=== PATIENT | female | born 1965 | race Caucasian/White ===

== ENCOUNTER 2017-07-11 04:23 | Emergency (ER) | payer SELFPAY ==
[2017-07-11] MEDS ORDERED: Sodium Chloride 0.9% 10 ML Syringe FLUSH PRN (04:31)
[2017-07-11] MEDS ORDERED: methylPREDNISolone Sodium Succinate 125 MG/2 ML SDV IVPUSH STA (04:31)
[2017-07-11] MEDS ORDERED: Sodium Chloride 0.9% 2.5 ML Syringe FLUSH PRN (04:31)
[2017-07-11] MEDS ORDERED: Albuterol/Ipratropium 3.0-0.5 MG/3 ML Neb Soln NEB ONE ×2 (04:31→05:17)
[2017-07-11] MEDS ORDERED: methylPREDNISolone Sodium Succinate 125 MG/2 ML SDV ONE (04:38)
[2017-07-11] MEDS ORDERED: methylPREDNISolone Sodium Succinate 125 MG/2 ML SDV IVPUSH ONE (04:42)
[2017-07-11 05:02] LABS: CHLORIDE,CL 102 mmol/L (98-107); SODIUM,NA 137 mmol/L (136-145)
--- NOTE | 2017-07-11 06:21 | EDM.PDOC ---
ED HPI GENERAL MEDICAL PROBLEM - General Chief Complaint: Respiratory Problem Stated Complaint: AMBULANCE Time Seen by Provider: 07/11/17 06:16 - History of Present Illness INITIAL COMMENTS - FREE TEXT/NARRATIVE: HISTORY AND PHYSICAL: History of present illness: Patient 51-year-old female presents status post fall she hit her head and injured her left wrist this occurred one day prior she denies loss consciousness denies neck pain denies any other trauma or concern. Review of systems: As per history of present illness and below otherwise all systems reviewed and negative. Past medical history: As per history of present illness and as reviewed below otherwise noncontributory. Surgical history: As per history of present illness and as reviewed below otherwise noncontributory. Social history: No reported history of drug or alcohol abuse. Family history: As per history of present illness and as reviewed below otherwise noncontributory. Physical exam: HEENT: Atraumatic, normocephalic, pupils reactive, negative for conjunctival pallor or scleral icterus, mucous membranes moist, throat clear, neck supple, nontender, trachea midline. Lungs: Clear to auscultation, breath sounds equal bilaterally, chest nontender. Heart: S1S2, regular, negative for clicks, rubs, or JVD. Abdomen: Soft, nondistended, nontender. Negative for masses or hepatosplenomegaly. Negative for costovertebral tenderness. Pelvis: Stable nontender. Genitourinary: Deferred. Rectal: Deferred. Extremities: Patient is some mild tenderness and some small bruising over the dorsal aspect of her left wrist is no snuffbox tenderness no point tenderness no crepitation CMS neurovascular is unremarkable Neuro: Awake, alert, oriented. Cranial nerves II through XII unremarkable. Cerebellum unremarkable. Motor and sensory unremarkable throughout. Exam nonfocal. Diagnostics: CT brain x-ray left wrist Therapeutics: Velcro splint left wrist Impression: #1 head injury #2 left wrist injury Definitive disposition and diagnosis as appropriate pending reevaluation and review of above. Bilateral Ribs Pain Score (Numeric/FACES): 8 - Related Data Allergies Allergy/AdvReac Type Severity Reaction Status Date / Time No Known Allergies Allergy Verified 07/11/17 04:41 Home Meds: Home Meds Aspirin [Ecotrin] 81 mg PO DAILY 07/11/17 [History] Gabapentin [Neurontin] 800 mg PO DAILY 07/11/17 [History] Insulin Aspart [NovoLOG] 0 unit WITHMEALSANDBED 07/11/17 [History] Insulin Glargine,Hum.Rec.Anlog [Touseema Solostar] 50 unit SQ QAM 07/11/17 [ History] Lisinopril/Hydrochlorothiazide [Lisinopril-Hctz 10-12.5 mg Tab] 1 each PO DAILY 07/11/17 [History] Promethazine [Phenergan] 25 mg PO Q4H PRN 07/11/17 [History] Ziprasidone HCl [Geodon] 80 mg PO BID 07/11/17 [History] atorvaSTATin [Lipitor] 20 mg PO BEDTIME 07/11/17 [History] diphenhydrAMINE [Benadryl] 25 mg PO ASDIRECTED PRN 07/11/17 [History] hydrOXYzine HCl [Atarax] 50 mg PO TID 07/11/17 [History] lamoTRIgine 200 mg PO DAILY 07/11/17 [History] Past Medical History Gastrointestinal History: Reports: Pancreatitis 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: Endocrine/Metabolic History: Reports: Diabetes, Type I Oncologic (Cancer) History: Reports: Cervix - Past Surgical History GI Surgical History: Reports: Other (See Below) Other GI Surgeries/Procedures: pacreatic stent placement/removal Female Surgical History: Reports: Section, Hysterectomy Musculoskeletal Surgical History: Reports: Arthroscopic Knee Social & Family History - Tobacco Use Smoking Status *Q: Current Every Day Smoker Years of Tobacco use: 30 Packs/Tins Daily: 1 - Caffeine Use Caffeine Use: Reports: Energy Drinks - Recreational Drug Use Recreational Drug Use: Yes Drug Use in Last 12 Months: Yes Recreational Drug Type: Reports: Cocaine Recreational Drug Use Frequency: Socially ED ROS GENERAL - Review of Systems Review Of Systems: ROS reveals no pertinent complaints other than HPI. ED EXAM, GENERAL - Physical Exam Exam: See Below (See dictation) Course - Vital Signs Last Recorded V/S: Last Vital Signs Temp 36.3 C 07/11/17 04:36 Pulse 93 07/11/17 05:53 Resp 20 07/11/17 05:53 BP 142/81 H 07/11/17 05:53 Pulse Ox 96 07/11/17 05:53 - Orders/Labs/Meds Orders: Active Orders 24 hr Category Date Time Status EKG Documentation Completion [RC] STAT Care 07/11/17 04:31 Active RT Aerosol Therapy [RC] ASDIRECTED Care 07/11/17 04:32 Active RT Aerosol Therapy [RC] ASDIRECTED Care 07/11/17 05:18 Active Chest 1V Frontal [CR] Stat Exams 07/11/17 04:31 Taken Sodium Chloride 0.9% [Saline Flush] Med 07/11/17 04:31 Active 10 ml FLUSH ASDIRECTED PRN Sodium Chloride 0.9% [Saline Flush] Med 07/11/17 04:31 Active 2.5 ml FLUSH ASDIRECTED PRN Saline Lock Insert [OM.PC] Stat Oth 07/11/17 04:31 Ordered Medication Orders Sodium Chloride (Saline Flush) 10 ml FLUSH ASDIRECTED PRN PRN Reason: Keep Vein Open Sodium Chloride (Saline Flush) 2.5 ml FLUSH ASDIRECTED PRN PRN Reason: Keep Vein Open Labs: Laboratory Tests 07/11/17 07/11/17 07/11/17 Range/Units 04:35 04:35 04:35 WBC 7.21 (4.0-11.0) K/uL RBC 4.99 (4.30-5.90) M/uL Hgb 15.6 (12.0-16.0) g/dL Hct 44.6 (36.0-46.0) % MCV 89.4 (80.0-98.0) fL MCH 31.3 (27.0-32.0) pg MCHC 35.0 (31.0-37.0) g/dL RDW Std Deviation 45.5 (28.0-62.0) fl RDW Coeff of Anuj 14 (11.0-15.0) % Plt Count 218 (150-400) K/uL MPV 9.60 (7.40-12.00) fL Neut % (Auto) 55.0 (48.0-80.0) % Lymph % (Auto) 33.3 (16.0-40.0) % [place] % (Auto) 8.6 (0.0-15.0) % Eos % (Auto) 2.4 (0.0-7.0) % Baso % (Auto) 0.7 (0.0-1.5) % Neut # (Auto) 4.0 (1.4-5.7) K/uL Lymph # (Auto) 2.4 (0.6-2.4) K/uL [place] # (Auto) 0.6 (0.0-0.8) K/uL Eos # (Auto) 0.2 (0.0-0.7) K/uL Baso # (Auto) 0.1 (0.0-0.1) K/uL Nucleated RBC % 0.0 /100WBC Nucleated RBCs # 0 K/uL INR 0.96 ABG pH (7.35-7.45) ABG pCO2 (35-45) mmHG ABG pO2 (75-100) mmHG ABG HCO3 (22-26) mEq/L ABG Total CO2 ABG Base Excess (-2.0-2.0) Sodium 137 (136-145) mmol/L Potassium 4.1 (3.5-5.1) mmol/L Chloride 102 (98-107) mmol/L Carbon Dioxide 29.9 (21.0-32.0) mmol/L BUN 20 H (7.0-18.0) mg/dL Creatinine 1.4 H (0.6-1.0) mg/dL Est Cr Clr Drug Dosing 43.50 mL/min Estimated GFR (MDRD) 39.3 ml/min Glucose 332 H (74-106) mg/dL Calcium 9.1 (8.5-10.1) mg/dL Total Bilirubin 0.4 (0.2-1.0) mg/dL AST 26 (15-37) IU/L ALT 34 (14-63) IU/L Alkaline Phosphatase 129 H (46-116) U/L Troponin I < 0.050 (0.000-0.056) ng/mL B-Natriuretic Peptide (<100) PG/ML Total Protein 6.8 (6.4-8.2) g/dL Albumin 3.2 L (3.4-5.0) g/dL Globulin 3.6 H (2.0-3.5) g/dL Albumin/Globulin Ratio 0.9 L (1.3-2.8) 07/11/17 07/11/17 Range/Units 04:35 04:45 WBC (4.0-11.0) K/uL RBC (4.30-5.90) M/uL Hgb (12.0-16.0) g/dL Hct (36.0-46.0) % MCV (80.0-98.0) fL MCH (27.0-32.0) pg MCHC (31.0-37.0) g/dL RDW Std Deviation (28.0-62.0) fl RDW Coeff of Anuj (11.0-15.0) % Plt Count (150-400) K/uL MPV (7.40-12.00) fL Neut % (Auto) (48.0-80.0) % Lymph % (Auto) (16.0-40.0) % [place] % (Auto) (0.0-15.0) % Eos % (Auto) (0.0-7.0) % Baso % (Auto) (0.0-1.5) % Neut # (Auto) (1.4-5.7) K/uL Lymph # (Auto) (0.6-2.4) K/uL [place] # (Auto) (0.0-0.8) K/uL Eos # (Auto) (0.0-0.7) K/uL Baso # (Auto) (0.0-0.1) K/uL Nucleated RBC % /100WBC Nucleated RBCs # K/uL INR ABG pH 7.479 H (7.35-7.45) ABG pCO2 40 (35-45) mmHG ABG pO2 141 H (75-100) mmHG ABG HCO3 30 H (22-26) mEq/L ABG Total CO2 25.6 ABG Base Excess 5.7 H (-2.0-2.0) Sodium (136-145) mmol/L Potassium (3.5-5.1) mmol/L Chloride (98-107) mmol/L Carbon Dioxide (21.0-32.0) mmol/L BUN (7.0-18.0) mg/dL Creatinine (0.6-1.0) mg/dL Est Cr Clr Drug Dosing mL/min Estimated GFR (MDRD) ml/min Glucose (74-106) mg/dL Calcium (8.5-10.1) mg/dL Total Bilirubin (0.2-1.0) mg/dL AST (15-37) IU/L ALT (14-63) IU/L Alkaline Phosphatase (46-116) U/L Troponin I (0.000-0.056) ng/mL B-Natriuretic Peptide < 15 (<100) PG/ML Total Protein (6.4-8.2) g/dL Albumin (3.4-5.0) g/dL Globulin (2.0-3.5) g/dL Albumin/Globulin Ratio (1.3-2.8) Meds: Medications Generic Name Dose Route Start Last Admin Trade Name Freq PRN Reason Stop Dose Admin Sodium Chloride 10 ml 07/11/17 04:31 Saline Flush FLUSH ASDIRECTED PRN Keep Vein Open Sodium Chloride 2.5 ml 07/11/17 04:31 Saline Flush FLUSH ASDIRECTED PRN Keep Vein Open Discontinued Medications Generic Name Dose Route Start Last Admin Trade Name Freq PRN Reason Stop Dose Admin Albuterol/Ipratropium 3 ml 07/11/17 04:31 07/11/17 04:44 Duoneb 3.0-0.5 Mg/3 Ml NEB 07/11/17 04:32 3 ml ONETIME ONE Administration Albuterol/Ipratropium 3 ml 07/11/17 05:17 07/11/17 05:31 Duoneb 3.0-0.5 Mg/3 Ml NEB 07/11/17 05:18 3 ml ONETIME ONE Administration Methylprednisolone Sodium Succinate 125 mg 07/11/17 04:31 07/11/17 04:46 Solu-Medrol IVPUSH 07/11/17 04:32 Not Given ONETIME STA Methylprednisolone Sodium Succinate Confirm 07/11/17 04:38 07/11/17 04:44 Solu-Medrol Administered 07/11/17 04:39 Not Given Dose 125 mg .ROUTE .STK-MED ONE Methylprednisolone Sodium Succinate 125 mg 07/11/17 04:42 07/11/17 04:44 Solu-Medrol IVPUSH 07/11/17 04:43 125 mg ONETIME ONE Administration Departure - Departure Time of Disposition: 06:20 Disposition: Home, Self-Care 01 Condition: Good Clinical Impression: Head injury, Wrist injury - Discharge Information Referrals: PCP,None [Primary Care Provider] - Additional Instructions: The following information is given to patients seen in the emergency department who are being discharged to home. This information is to outline your options for follow-up care. We provide all patients seen in our emergency department with a follow-up referral. The need for follow-up, as well as the timing and circumstances, are variable depending upon the specifics of your emergency department visit. If you don't have a primary care physician on staff, we will provide you with a referral. We always advise you to contact your personal physician following an emergency department visit to inform them of the circumstance of the visit and for follow-up with them and/or the need for any referrals to a consulting specialist. The emergency department will also refer you to a specialist when appropriate. This referral assures that you have the opportunity for followup care with a specialist. All of these measure are taken in an effort to provide you with optimal care, which includes your followup. Under all circumstances we always encourage you to contact your private physician who remains a resource for coordinating your care. When calling for followup care, please make the office aware that this follow-up is from your recent emergency room visit. If for any reason you are refused follow-up, please contact the [facility] emergency department at and asked to speak to the emergency department charge nurse. [facility] Professional Building [address] [place] [address], [address] [place] [address] Velcro splint as directed follow-up primary medical doctor/orthopedic clinic above as needed as discussed return as needed as discussed - My Orders Last 24 Hours: My Active Orders 07/11/17 04:31 EKG Documentation Completion [RC] STAT Chest 1V Frontal [CR] Stat Sodium Chloride 0.9% [Saline Flush] 10 ml FLUSH ASDIRECTED PRN Sodium Chloride 0.9% [Saline Flush] 2.5 ml FLUSH ASDIRECTED PRN Saline Lock Insert [OM.PC] Stat 07/11/17 04:32 RT Aerosol Therapy [RC] ASDIRECTED 07/11/17 05:18 RT Aerosol Therapy [RC] ASDIRECTED - Assessment/Plan Last 24 Hours: My Active Orders 07/11/17 04:31 EKG Documentation Completion [RC] STAT Chest 1V Frontal [CR] Stat Sodium Chloride 0.9% [Saline Flush] 10 ml FLUSH ASDIRECTED PRN Sodium Chloride 0.9% [Saline Flush] 2.5 ml FLUSH ASDIRECTED PRN Saline Lock Insert [OM.PC] Stat 07/11/17 04:32 RT Aerosol Therapy [RC] ASDIRECTED 07/11/17 05:18 RT Aerosol Therapy [RC] ASDIRECTED
--- NOTE | 2017-07-11 06:46 | EDM.PDOC ---
ED HPI GENERAL MEDICAL PROBLEM - General Chief Complaint: Respiratory Problem Stated Complaint: AMBULANCE Time Seen by Provider: 07/11/17 06:16 - History of Present Illness INITIAL COMMENTS - FREE TEXT/NARRATIVE: HISTORY AND PHYSICAL: History of present illness: Patient 51-year-old female presents with concern of shortness of breath after smoking cocaine she does smoke tobacco for years she denies other drugs or concerns and states this was a one-time event upon arrival here she is wheezing short of breath she denies chest pain nausea vomiting fever chills or other complaints. Review of systems: As per history of present illness and below otherwise all systems reviewed and negative. Past medical history: As per history of present illness and as reviewed below otherwise noncontributory. Surgical history: As per history of present illness and as reviewed below otherwise noncontributory. Social history: No reported history of drug or alcohol abuse. Family history: As per history of present illness and as reviewed below otherwise noncontributory. Physical exam: HEENT: Atraumatic, normocephalic, pupils reactive, negative for conjunctival pallor or scleral icterus, mucous membranes moist, throat clear, neck supple, nontender, trachea midline. Lungs: Or wheezing breath sounds slightly diminished, breath sounds equal bilaterally, chest nontender. Heart: S1S2, regular, negative for clicks, rubs, or JVD. Abdomen: Soft, nondistended, nontender. Negative for masses or hepatosplenomegaly. Negative for costovertebral tenderness. Pelvis: Stable nontender. Genitourinary: Deferred. Rectal: Deferred. Extremities: Atraumatic, negative for cords or calf pain. Neurovascular unremarkable. Neuro: Awake, alert, oriented. Cranial nerves II through XII unremarkable. Cerebellum unremarkable. Motor and sensory unremarkable throughout. Exam nonfocal. Diagnostics: CBC CMP troponin PT/INR chest x-ray EKG Therapeutics: Albuterol ipratropium nebulizer Impression: #1 substance abuse #2 bronchospasm Definitive disposition and diagnosis as appropriate pending reevaluation and review of above. Bilateral Ribs Pain Score (Numeric/FACES): 8 - Related Data Allergies Allergy/AdvReac Type Severity Reaction Status Date / Time No Known Allergies Allergy Verified 07/11/17 04:41 Home Meds: Home Meds Aspirin [Ecotrin] 81 mg PO DAILY 07/11/17 [History] Gabapentin [Neurontin] 800 mg PO DAILY 07/11/17 [History] Insulin Aspart [NovoLOG] 0 unit WITHMEALSANDBED 07/11/17 [History] Insulin Glargine,Hum.Rec.Anlog [[place]je[place] Solostar] 50 unit SQ QAM 07/11/17 [ History] Lisinopril/Hydrochlorothiazide [Lisinopril-Hctz 10-12.5 mg Tab] 1 each PO DAILY 07/11/17 [History] Promethazine [Phenergan] 25 mg PO Q4H PRN 07/11/17 [History] Ziprasidone HCl [Geodon] 80 mg PO BID 07/11/17 [History] atorvaSTATin [Lipitor] 20 mg PO BEDTIME 07/11/17 [History] diphenhydrAMINE [Benadryl] 25 mg PO ASDIRECTED PRN 07/11/17 [History] hydrOXYzine HCl [Atarax] 50 mg PO TID 07/11/17 [History] lamoTRIgine 200 mg PO DAILY 07/11/17 [History] Past Medical History Gastrointestinal History: Reports: Pancreatitis 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: Endocrine/Metabolic History: Reports: Diabetes, Type I Oncologic (Cancer) History: Reports: Cervix - Past Surgical History GI Surgical History: Reports: Other (See Below) Other GI Surgeries/Procedures: pacreatic stent placement/removal Female Surgical History: Reports: Section, Hysterectomy Musculoskeletal Surgical History: Reports: Arthroscopic Knee Social & Family History - Tobacco Use Smoking Status *Q: Current Every Day Smoker Years of Tobacco use: 30 Packs/Tins Daily: 1 - Caffeine Use Caffeine Use: Reports: Energy Drinks - Recreational Drug Use Recreational Drug Use: Yes Drug Use in Last 12 Months: Yes Recreational Drug Type: Reports: Cocaine Recreational Drug Use Frequency: Socially ED ROS GENERAL - Review of Systems Review Of Systems: ROS reveals no pertinent complaints other than HPI. ED EXAM, GENERAL - Physical Exam Exam: See Below (See dictation) Course - Vital Signs Text/Narrative:: Patient's emergency department course and unremarkable she is sleeping comfortably I discussed with her admission for observation she requests discharge home she'll be discharged on albuterol metered-dose inhaler and Medrol Dosepak to follow-up with Dr. garcia as needed as discussed. Using drugs Last Recorded V/S: Last Vital Signs Temp 36.3 C 07/11/17 04:36 Pulse 93 07/11/17 05:53 Resp 20 07/11/17 05:53 BP 142/81 H 07/11/17 05:53 Pulse Ox 96 07/11/17 05:53 - Orders/Labs/Meds Orders: Active Orders 24 hr Category Date Time Status EKG Documentation Completion [RC] STAT Care 07/11/17 04:31 Active RT Aerosol Therapy [RC] ASDIRECTED Care 07/11/17 04:32 Active RT Aerosol Therapy [RC] ASDIRECTED Care 07/11/17 05:18 Active Chest 1V Frontal [CR] Stat Exams 07/11/17 04:31 Taken Sodium Chloride 0.9% [Saline Flush] Med 07/11/17 04:31 Active 10 ml FLUSH ASDIRECTED PRN Sodium Chloride 0.9% [Saline Flush] Med 07/11/17 04:31 Active 2.5 ml FLUSH ASDIRECTED PRN Saline Lock Insert [OM.PC] Stat Oth 07/11/17 04:31 Ordered Medication Orders Sodium Chloride (Saline Flush) 10 ml FLUSH ASDIRECTED PRN PRN Reason: Keep Vein Open Sodium Chloride (Saline Flush) 2.5 ml FLUSH ASDIRECTED PRN PRN Reason: Keep Vein Open Labs: Laboratory Tests 07/11/17 07/11/17 07/11/17 Range/Units 04:35 04:35 04:35 WBC 7.21 (4.0-11.0) K/uL RBC 4.99 (4.30-5.90) M/uL Hgb 15.6 (12.0-16.0) g/dL Hct 44.6 (36.0-46.0) % MCV 89.4 (80.0-98.0) fL MCH 31.3 (27.0-32.0) pg MCHC 35.0 (31.0-37.0) g/dL RDW Std Deviation 45.5 (28.0-62.0) fl RDW Coeff of Anuj 14 (11.0-15.0) % Plt Count 218 (150-400) K/uL MPV 9.60 (7.40-12.00) fL Neut % (Auto) 55.0 (48.0-80.0) % Lymph % (Auto) 33.3 (16.0-40.0) % [place] % (Auto) 8.6 (0.0-15.0) % Eos % (Auto) 2.4 (0.0-7.0) % Baso % (Auto) 0.7 (0.0-1.5) % Neut # (Auto) 4.0 (1.4-5.7) K/uL Lymph # (Auto) 2.4 (0.6-2.4) K/uL [place] # (Auto) 0.6 (0.0-0.8) K/uL Eos # (Auto) 0.2 (0.0-0.7) K/uL Baso # (Auto) 0.1 (0.0-0.1) K/uL Nucleated RBC % 0.0 /100WBC Nucleated RBCs # 0 K/uL INR 0.96 ABG pH (7.35-7.45) ABG pCO2 (35-45) mmHG ABG pO2 (75-100) mmHG ABG HCO3 (22-26) mEq/L ABG Total CO2 ABG Base Excess (-2.0-2.0) Sodium 137 (136-145) mmol/L Potassium 4.1 (3.5-5.1) mmol/L Chloride 102 (98-107) mmol/L Carbon Dioxide 29.9 (21.0-32.0) mmol/L BUN 20 H (7.0-18.0) mg/dL Creatinine 1.4 H (0.6-1.0) mg/dL Est Cr Clr Drug Dosing 43.50 mL/min Estimated GFR (MDRD) 39.3 ml/min Glucose 332 H (74-106) mg/dL Calcium 9.1 (8.5-10.1) mg/dL Total Bilirubin 0.4 (0.2-1.0) mg/dL AST 26 (15-37) IU/L ALT 34 (14-63) IU/L Alkaline Phosphatase 129 H (46-116) U/L Troponin I < 0.050 (0.000-0.056) ng/mL B-Natriuretic Peptide (<100) PG/ML Total Protein 6.8 (6.4-8.2) g/dL Albumin 3.2 L (3.4-5.0) g/dL Globulin 3.6 H (2.0-3.5) g/dL Albumin/Globulin Ratio 0.9 L (1.3-2.8) 07/11/17 07/11/17 Range/Units 04:35 04:45 WBC (4.0-11.0) K/uL RBC (4.30-5.90) M/uL Hgb (12.0-16.0) g/dL Hct (36.0-46.0) % MCV (80.0-98.0) fL MCH (27.0-32.0) pg MCHC (31.0-37.0) g/dL RDW Std Deviation (28.0-62.0) fl RDW Coeff of Anuj (11.0-15.0) % Plt Count (150-400) K/uL MPV (7.40-12.00) fL Neut % (Auto) (48.0-80.0) % Lymph % (Auto) (16.0-40.0) % [place] % (Auto) (0.0-15.0) % Eos % (Auto) (0.0-7.0) % Baso % (Auto) (0.0-1.5) % Neut # (Auto) (1.4-5.7) K/uL Lymph # (Auto) (0.6-2.4) K/uL [place] # (Auto) (0.0-0.8) K/uL Eos # (Auto) (0.0-0.7) K/uL Baso # (Auto) (0.0-0.1) K/uL Nucleated RBC % /100WBC Nucleated RBCs # K/uL INR ABG pH 7.479 H (7.35-7.45) ABG pCO2 40 (35-45) mmHG ABG pO2 141 H (75-100) mmHG ABG HCO3 30 H (22-26) mEq/L ABG Total CO2 25.6 ABG Base Excess 5.7 H (-2.0-2.0) Sodium (136-145) mmol/L Potassium (3.5-5.1) mmol/L Chloride (98-107) mmol/L Carbon Dioxide (21.0-32.0) mmol/L BUN (7.0-18.0) mg/dL Creatinine (0.6-1.0) mg/dL Est Cr Clr Drug Dosing mL/min Estimated GFR (MDRD) ml/min Glucose (74-106) mg/dL Calcium (8.5-10.1) mg/dL Total Bilirubin (0.2-1.0) mg/dL AST (15-37) IU/L ALT (14-63) IU/L Alkaline Phosphatase (46-116) U/L Troponin I (0.000-0.056) ng/mL B-Natriuretic Peptide < 15 (<100) PG/ML Total Protein (6.4-8.2) g/dL Albumin (3.4-5.0) g/dL Globulin (2.0-3.5) g/dL Albumin/Globulin Ratio (1.3-2.8) Meds: Medications Generic Name Dose Route Start Last Admin Trade Name Freq PRN Reason Stop Dose Admin Sodium Chloride 10 ml 07/11/17 04:31 Saline Flush FLUSH ASDIRECTED PRN Keep Vein Open Sodium Chloride 2.5 ml 07/11/17 04:31 Saline Flush FLUSH ASDIRECTED PRN Keep Vein Open Discontinued Medications Generic Name Dose Route Start Last Admin Trade Name Freq PRN Reason Stop Dose Admin Albuterol/Ipratropium 3 ml 07/11/17 04:31 07/11/17 04:44 Duoneb 3.0-0.5 Mg/3 Ml NEB 07/11/17 04:32 3 ml ONETIME ONE Administration Albuterol/Ipratropium 3 ml 07/11/17 05:17 07/11/17 05:31 Duoneb 3.0-0.5 Mg/3 Ml NEB 07/11/17 05:18 3 ml ONETIME ONE Administration Methylprednisolone Sodium Succinate 125 mg 07/11/17 04:31 07/11/17 04:46 Solu-Medrol IVPUSH 07/11/17 04:32 Not Given ONETIME STA Methylprednisolone Sodium Succinate Confirm 07/11/17 04:38 07/11/17 04:44 Solu-Medrol Administered 07/11/17 04:39 Not Given Dose 125 mg .ROUTE .STK-MED ONE Methylprednisolone Sodium Succinate 125 mg 07/11/17 04:42 07/11/17 04:44 Solu-Medrol IVPUSH 07/11/17 04:43 125 mg ONETIME ONE Administration Departure - Departure Time of Disposition: 06:45 Disposition: Home, Self-Care 01 Condition: Good Clinical Impression: Substance abuse, Bronchospasm - Discharge Information Referrals: PCP,None [Primary Care Provider] - Forms: ED Department Discharge Additional Instructions: The following information is given to patients seen in the emergency department who are being discharged to home. This information is to outline your options for follow-up care. We provide all patients seen in our emergency department with a follow-up referral. The need for follow-up, as well as the timing and circumstances, are variable depending upon the specifics of your emergency department visit. If you don't have a primary care physician on staff, we will provide you with a referral. We always advise you to contact your personal physician following an emergency department visit to inform them of the circumstance of the visit and for follow-up with them and/or the need for any referrals to a consulting specialist. The emergency department will also refer you to a specialist when appropriate. This referral assures that you have the opportunity for followup care with a specialist. All of these measure are taken in an effort to provide you with optimal care, which includes your followup. Under all circumstances we always encourage you to contact your private physician who remains a resource for coordinating your care. When calling for followup care, please make the office aware that this follow-up is from your recent emergency room visit. If for any reason you are refused follow-up, please contact the [facility] emergency department at and asked to speak to the emergency department charge nurse. [facility] [address] [place] [id number] Albuterol Medrol as prescribed follow-up primary medical doctor and/or clinic above return as needed as discussed - My Orders Last 24 Hours: My Active Orders 07/11/17 04:31 EKG Documentation Completion [RC] STAT Chest 1V Frontal [CR] Stat Sodium Chloride 0.9% [Saline Flush] 10 ml FLUSH ASDIRECTED PRN Sodium Chloride 0.9% [Saline Flush] 2.5 ml FLUSH ASDIRECTED PRN Saline Lock Insert [OM.PC] Stat 07/11/17 04:32 RT Aerosol Therapy [RC] ASDIRECTED 07/11/17 05:18 RT Aerosol Therapy [RC] ASDIRECTED - Assessment/Plan Last 24 Hours: My Active Orders 07/11/17 04:31 EKG Documentation Completion [RC] STAT Chest 1V Frontal [CR] Stat Sodium Chloride 0.9% [Saline Flush] 10 ml FLUSH ASDIRECTED PRN Sodium Chloride 0.9% [Saline Flush] 2.5 ml FLUSH ASDIRECTED PRN Saline Lock Insert [OM.PC] Stat 07/11/17 04:32 RT Aerosol Therapy [RC] ASDIRECTED 07/11/17 05:18 RT Aerosol Therapy [RC] ASDIRECTED
--- NOTE | 2017-07-12 15:02 | CR ---
EXAM DATE: 07/11/17 PATIENT'S AGE: 51 Patient: SHILPA CHOI Facility: [place], [place] Site . Site : 1965 Study: XRay Chest [id number]/29/2018 4:43:19 AM Ordering Physician: Doctor Kent Final Report: INDICATION: Shortness of breath TECHNIQUE: Chest radiograph 1 view COMPARISON: None FINDINGS: Cardiovascular and mediastinum: The heart silhouette is normal in size and morphology. The mediastinum is normal in appearance. Lungs and pleural spaces: Both lungs are unremarkable in appearance. No sign of pleural effusion seen. No pneumothorax is identified. Bones and soft tissues: No significant findings. IMPRESSION: 1. No acute cardiopulmonary disease is seen. Dictated by Saurav Tobias MD @ 07/11/2017 4:53:00 AM Dictated by: Saurav Tobias MD @ 07/11/2017 04:53:07 (Electronic Signature) Report Signed by Proxy. CHARITO
== END 2017-07-11 07:16 | disposition home or self-care (01) ==
LOC: MW.ED 04:23
DX: J98.01 Acute bronchospasm (principal); F19.10 Other psychoactive substance abuse, uncomplicated; E10.9 Type 1 diabetes mellitus without complications; F17.210 Nicotine dependence, cigarettes, uncomplicated; Z79.82 Long term (current) use of aspirin; Z79.899 Other long term (current) drug therapy
CPT/HCPCS: 36415; 36600; 71045; 80053; 82803; 83880; 84484; 85025; 85610; 93005; 94640; 96374; 99285; J2930; 99283

== ENCOUNTER 2017-08-02 19:32 | Emergency (ER) | payer MEDICARE ==
[2017-08-02] MEDS ORDERED: Sodium Chloride 0.9% 10 ML Syringe FLUSH PRN (20:17)
[2017-08-02] MEDS ORDERED: Sodium Chloride 0.9% 2.5 ML Syringe FLUSH PRN (20:17)
--- NOTE | 2017-08-02 20:21 | EDM.PDOC ---
ED HPI GENERAL MEDICAL PROBLEM - General Chief Complaint: Respiratory Problem Stated Complaint: TROUBLE BREATHING/COUGH/HARD TO SWALLOW Time Seen by Provider: 08/02/17 20:18 Source of Information: Reports: Patient, Family History Limitations: Reports: No Limitations - History of Present Illness INITIAL COMMENTS - FREE TEXT/NARRATIVE: HISTORY AND PHYSICAL: []52-year-old presenting with chest and back pain History of Present Illness: []Patient was seen on 07/11/17 with similar symptoms after smoking cocaine Review of Systems: As per history of present illness and below otherwise all systems reviewed and negative. Past medical history: As per history of present illness and as reviewed below otherwise noncontributory. Surgical history: As per history of present illness and as reviewed below otherwise noncontributory. Social history: No reported history of drug or alcohol abuse. Family history: As per history of present illness and as reviewed below otherwise noncontributory. Physical exam: Alert and oriented to questions in full sentences with some difficulty. HEENT: Atraumatic, normocehpalic, pupils reactive, negative for conjunctival pallor or scleral icterus, mucous membranes moist, throat clear, neck supple, nontender, trachea midline. Lungs: Clear to auscultation, breath sounds equal bilaterally, chest non tender. Heart: S1S2, regular, negative for clicks, rubs, or JVD. Abdomen: Soft, nondistended, tender. Negative for masses or hepatossplenmegaly. Negative for costovertebral tenderness. Stating as coming around the other side of her back and now to the front Pelvis: Stable nontender. Genitourinary: Deferred. Rectal: Deferred Extremities: Atraumatic, negative for cords or calf pain. Neurovascular unremarkable. Neuro: Awake, alert, oriented. Cranial nerves II through XII unremarkable. Cerebellum unremarkable. Motor and sensory unremarkable throughout. Exam nonfocal. Diagnostics: []CBC CMP EKG troponin chest x-ray Therapeutics: []DuoNeb Impression: []Shortness of breath Plan: []Discharged home Follow up with your primary care provider Lizabeth Stack Definitive disposition and diagnosis as appropriate pending reevaluation and review of above. Onset: Gradual Duration: Week(s):, Getting Worse Location: Reports: Chest, Back Quality: Reports: Stabbing Severity: Moderate Improves with: Reports: None Worsens with: Reports: None Associated Symptoms: Reports: Chest Pain, Cough - Related Data Allergies Allergy/AdvReac Type Severity Reaction Status Date / Time No Known Allergies Allergy Verified 08/02/17 19:55 Home Meds: Home Meds Aspirin [Ecotrin] 81 mg PO DAILY 07/11/17 [History] Gabapentin [Neurontin] 800 mg PO DAILY 07/11/17 [History] Insulin Aspart [NovoLOG] 0 unit WITHMEALSANDBED 07/11/17 [History] Insulin Glargine,Hum.Rec.Anlog [Toujeo Solostar] 50 unit SQ QAM 07/11/17 [ History] Lisinopril/Hydrochlorothiazide [Lisinopril-Hctz 10-12.5 mg Tab] 1 each PO DAILY 07/11/17 [History] Promethazine [Phenergan] 25 mg PO Q4H PRN 07/11/17 [History] Ziprasidone HCl [Geodon] 80 mg PO BID 07/11/17 [History] atorvaSTATin [Lipitor] 20 mg PO BEDTIME 07/11/17 [History] diphenhydrAMINE [Benadryl] 25 mg PO ASDIRECTED PRN 07/11/17 [History] hydrOXYzine HCl [Atarax] 50 mg PO TID 07/11/17 [History] lamoTRIgine 200 mg PO DAILY 07/11/17 [History] Benzonatate [Tessalon Perle] 100 mg PO QID PRN #40 capsule 08/02/17 [Rx] methylPREDNISolone [Medrol] 4 mg PO ASDIRECTED #1 dosepk 08/02/17 [Rx] Past Medical History Gastrointestinal History: Reports: Pancreatitis [employer] History: Reports: Endocrine/Metabolic History: Reports: Diabetes, Type I Oncologic (Cancer) History: Reports: Cervix - Past Surgical History GI Surgical History: Reports: Other (See Below) Other GI Surgeries/Procedures: pacreatic stent placement/removal Female Surgical History: Reports: Section, Hysterectomy Musculoskeletal Surgical History: Reports: Arthroscopic Knee Social & Family History - Tobacco Use Smoking Status *Q: Current Some Day Smoker Years of Tobacco use: 48 Packs/Tins Daily: 1 - Caffeine Use Caffeine Use: Reports: Coffee - Recreational Drug Use Recreational Drug Type: Reports: Cocaine ED ROS GENERAL - Review of Systems Review Of Systems: ROS reveals no pertinent complaints other than HPI. ED EXAM, GENERAL - Physical Exam Exam: See Below (Redictation) EKG INTERPRETATION EKG Date: 08/02/17 Rhythm: NSR Course - Vital Signs Last Recorded V/S: Last Vital Signs Temp 36.1 C 08/02/17 19:50 Pulse 97 08/02/17 19:50 Resp 22 H 08/02/17 19:50 BP 122/81 08/02/17 19:50 Pulse Ox 94 L 08/02/17 19:50 - Orders/Labs/Meds Orders: Active Orders 24 hr Category Date Time Status EKG Documentation Completion [RC] STAT Care 08/02/17 20:43 Active RT Aerosol Therapy [RC] ASDIRECTED Care 08/02/17 20:50 Active Chest 2V [CR] Stat Exams 08/02/17 20:17 Taken Sodium Chloride 0.9% [Saline Flush] Med 08/02/17 20:17 Active 10 ml FLUSH ASDIRECTED PRN Sodium Chloride 0.9% [Saline Flush] Med 08/02/17 20:17 Active 2.5 ml FLUSH ASDIRECTED PRN Saline Lock Insert [OM.PC] Stat Oth 08/02/17 20:17 Ordered Medication Orders Sodium Chloride (Saline Flush) 10 ml FLUSH ASDIRECTED PRN PRN Reason: Keep Vein Open Last Admin: 08/02/17 20:32 Dose: 10 ml Sodium Chloride (Saline Flush) 2.5 ml FLUSH ASDIRECTED PRN PRN Reason: Keep Vein Open Last Admin: 08/02/17 20:33 Dose: 2.5 ml Labs: Laboratory Tests 08/02/17 08/02/17 08/02/17 Range/Units 20:31 20:31 20:31 WBC 8.29 (4.0-11.0) K/uL RBC 4.98 (4.30-5.90) M/uL Hgb 15.6 (12.0-16.0) g/dL Hct 45.2 (36.0-46.0) % MCV 90.8 (80.0-98.0) fL MCH 31.3 (27.0-32.0) pg MCHC 34.5 (31.0-37.0) g/dL RDW Std Deviation 48.8 (28.0-62.0) fl RDW Coeff of Anuj 15 (11.0-15.0) % Plt Count 296 (150-400) K/uL MPV 9.50 (7.40-12.00) fL Neut % (Auto) 60.6 (48.0-80.0) % Lymph % (Auto) 28.6 (16.0-40.0) % [place] % (Auto) 8.2 (0.0-15.0) % Eos % (Auto) 2.2 (0.0-7.0) % Baso % (Auto) 0.4 (0.0-1.5) % Neut # (Auto) 5.0 (1.4-5.7) K/uL Lymph # (Auto) 2.4 (0.6-2.4) K/uL [place] # (Auto) 0.7 (0.0-0.8) K/uL Eos # (Auto) 0.2 (0.0-0.7) K/uL Baso # (Auto) 0.0 (0.0-0.1) K/uL Nucleated RBC % 0.0 /100WBC Nucleated RBCs # 0 K/uL Sodium 140 (136-145) mmol/L Potassium 4.2 (3.5-5.1) mmol/L Chloride 104 (98-107) mmol/L Carbon Dioxide 32.5 H (21.0-32.0) mmol/L BUN 31 H (7.0-18.0) mg/dL Creatinine 1.6 H (0.6-1.0) mg/dL Est Cr Clr Drug Dosing 37.63 mL/min Estimated GFR (MDRD) 33.6 ml/min Glucose 178 H (74-106) mg/dL Calcium 9.5 (8.5-10.1) mg/dL Total Bilirubin 0.6 (0.2-1.0) mg/dL AST 20 (15-37) IU/L ALT 28 (14-63) IU/L Alkaline Phosphatase 134 H (46-116) U/L Troponin I < 0.050 (0.000-0.056) ng/mL B-Natriuretic Peptide 50 (<100) PG/ML Total Protein 7.3 (6.4-8.2) g/dL Albumin 3.2 L (3.4-5.0) g/dL Globulin 4.1 H (2.0-3.5) g/dL Albumin/Globulin Ratio 0.8 L (1.3-2.8) Meds: Medications Generic Name Dose Route Start Last Admin Trade Name Maite PRN Reason Stop Dose Admin Sodium Chloride 10 ml 08/02/17 20:17 08/02/17 20:32 Saline Flush FLUSH 10 ml ASDIRECTED PRN Administration Keep Vein Open Sodium Chloride 2.5 ml 08/02/17 20:17 08/02/17 20:33 Saline Flush FLUSH 2.5 ml ASDIRECTED PRN Administration Keep Vein Open Discontinued Medications Generic Name Dose Route Start Last Admin Trade Name Maite PRN Reason Stop Dose Admin Albuterol/Ipratropium 3 ml 08/02/17 20:50 08/02/17 21:00 Duoneb 3.0-0.5 Mg/3 Ml NEB 08/02/17 20:51 3 ml ONETIME ONE Administration Ondansetron HCl 4 mg 08/02/17 20:33 08/02/17 20:37 Zofran IVPUSH 08/02/17 20:34 4 mg ONETIME ONE Administration Departure - Departure Time of Disposition: 22:05 Disposition: Home, Self-Care 01 Condition: Good Clinical Impression: Exacerbation of asthma Qualifiers: Asthma severity: mild Asthma persistence: persistent Qualified Code(s): J45.31 - Mild persistent asthma with (acute) exacerbation - Discharge Information Prescriptions: Benzonatate [Tessalon Perle] 100 mg PO QID PRN #40 capsule PRN Reason: Cough methylPREDNISolone [Medrol] 4 mg PO ASDIRECTED #1 dosepk Instructions: How to Use a Soft Mist Inhaler, Shortness of Breath, Adult, Easy- to-Read, Steps to Quit Smoking, [id number], Metered Dose Inhaler (No Spacer Used) Referrals: PCP,None [Primary Care Provider] - Forms: ED Department Discharge - My Orders Last 24 Hours: My Active Orders 08/02/17 20:17 Chest 2V [CR] Stat Sodium Chloride 0.9% [Saline Flush] 10 ml FLUSH ASDIRECTED PRN Sodium Chloride 0.9% [Saline Flush] 2.5 ml FLUSH ASDIRECTED PRN Saline Lock Insert [OM.PC] Stat 08/02/17 20:43 EKG Documentation Completion [RC] STAT 08/02/17 20:50 RT Aerosol Therapy [RC] ASDIRECTED - Assessment/Plan Last 24 Hours: My Active Orders 08/02/17 20:17 Chest 2V [CR] Stat Sodium Chloride 0.9% [Saline Flush] 10 ml FLUSH ASDIRECTED PRN Sodium Chloride 0.9% [Saline Flush] 2.5 ml FLUSH ASDIRECTED PRN Saline Lock Insert [OM.PC] Stat 08/02/17 20:43 EKG Documentation Completion [RC] STAT 08/02/17 20:50 RT Aerosol Therapy [RC] ASDIRECTED
[2017-08-02] MEDS ORDERED: Ondansetron 4 MG/2 ML SDV IVPUSH ONE (20:33)
[2017-08-02] MEDS ORDERED: Albuterol/Ipratropium 3.0-0.5 MG/3 ML Neb Soln NEB ONE (20:50)
[2017-08-02 21:03] LABS: CHLORIDE,CL 104 mmol/L (98-107); SODIUM,NA 140 mmol/L (136-145)
--- NOTE | 2017-08-03 14:41 | CR ---
EXAM DATE: 08/02/17 PATIENT'S AGE: 52 Patient: SHILPA CHOI Facility: [place], [place] Site . Site : 1965 Study: XRay Chest [id number]/21/2018 9:30:18 PM Ordering Physician: Doctor Kent Final Report: INDICATION: Shortness of Breath, Left-sided Rib Pain. COMPARISON: 07/11/2017. FINDINGS: PA and lateral views of the chest were obtained. The cardiac silhouette and pulmonary vasculature are within normal limits. The lungs are clear bilaterally. There is no pneumothorax seen. There is scoliosis and degenerative changes in the spine. There is an old right clavicle fracture again noted. IMPRESSION: No evidence of acute pulmonary disease. Dictated by Saud Gomez MD @ 08/02/2017 9:33:57 PM Dictated by: Saud Gomez MD @ 08/02/2017 21:35:06 (Electronic Signature) Report Signed by Proxy. CHARITO
== END 2017-08-02 22:25 | disposition home or self-care (01) ==
LOC: MW.ED 19:32
DX: J45.31 Mild persistent asthma with (acute) exacerbation (principal); E10.9 Type 1 diabetes mellitus without complications; F17.210 Nicotine dependence, cigarettes, uncomplicated; Z79.82 Long term (current) use of aspirin
CPT/HCPCS: 36415; 71046; 80053; 83880; 84484; 85025; 93005; 94640; 96374; 99285; J2405